=== PATIENT | female | born 1980 | race Caucasian/White ===

== ENCOUNTER → 2023-03-16 13:46 | Outpatient (BNVA) | payer MEDICAID, SELFPAY | PROVIDERS: Visit Provider Nurse Practitioner | DX: M79.641 Pain in right hand (principal) | CPT/HCPCS: 73130 ==

== ENCOUNTER 2023-03-21 11:03 | Outpatient (CLI) | payer MEDICAID, SELFPAY ==
--- NOTE | 2023-03-21 11:22 | XRR_ITS ---
PROCEDURE INFORMATION: Exam: XR Right Wrist Exam date and time: 03/21/2023 11:36 AM Age: 42 years old Clinical indication: Injury or trauma; Fall; Blunt trauma (contusions or hematomas); Wrist; Right; Injury date: 1 week ago; Additional info: M25.539 TECHNIQUE: Imaging protocol: Radiologic exam of the right wrist. 1image(s) are provided. Views: 3 or more views. COMPARISON: CR XR hand RT min 3V* [id number] 03/16/2023 1:53 PM FINDINGS: Bones/joints: Osseous alignment is maintained.No interval displaced fracture or dislocation is appreciated. Carpal alignment appears overall maintained. There is some slight radiocarpal level narrowing. There does appear to be some borderline widening at the scapholunate junction suggestive of some ligamentous sprain. Soft tissues: No radiopaque foreign body or subcutaneous emphysema is appreciated. Other findings: No other significant interval changes are appreciated. XR/XR wrist RT min 3V* [id number] IMPRESSION: There is some borderline widening at the scapholunate junction suggestive of some ligamentous sprain along with some mild chronic appearing radiocarpal narrowing. Overall no interval fracture or dislocation is appreciated.
== END 2023-03-21 11:04 | disposition home or self-care (01) ==
LOC: RAD 11:07
PROVIDERS: PCP Nurse Practitioner Family; Visit Provider Nurse Practitioner Family
DX: M25.531 Pain in right wrist (principal)
CPT/HCPCS: 73110